=== PATIENT | male | born 1960 | race Caucasian/White ===

== ENCOUNTER 2017-03-07 12:16 | Emergency (ER) | payer BC ==
[~2017-03-07] VITALS: Ht 172.7 cm; Wt 72.1 kg
[~2017-03-07 12:16] MED LIST: ATENOLOL25 MG PO; AUGMENTIN875 MG PO; ENDOCET 5-3251 EACH PO; METHIMAZOLE5 MG PO; NOHOMEMEDS; RABAVERT IM
[2017-03-07] MEDS ORDERED: ZITHROMAX Z-PA250 MG PO (12:51)
[2017-03-07 13:25] VITALS: BP 136/88
== END 2017-03-07 15:17 | disposition home or self-care (01) ==
LOC: EME 12:16
DX: J20.9 Acute bronchitis, unspecified (principal); I10 Essential (primary) hypertension; E03.9 Hypothyroidism, unspecified; J06.9 Acute upper respiratory infection, unspecified
CPT/HCPCS: 99281; 99284

== ENCOUNTER 2017-03-15 11:34 | Emergency (ER) | payer BC ==
[~2017-03-15] VITALS: Ht 172.7 cm; Wt 70.7 kg
[~2017-03-15 11:34] MED LIST changes: +ZITHROMAX Z-PA250 MG PO
[2017-03-15 12:18] LABS: HEMATOCRIT 44.5 % (38.0-50.0); HEMOGLOBIN 16.6 G/DL (12.5-16.6); MCH 31.2 PG (29.0-34.0); MCHC 37.3 G/DL (30.0-36.0); MCV 83.6 FL (86-99); PLATELET COUNT 222 K/uL (156-360); RBC DIS.WIDTH-CV 11.1 % (11.8-14.6); RBC DIS.WIDTH-SD 33.5 % (39-53); RED BLOOD COUNT 5.32 M/uL (4.00-5.50); WHITE BLOOD COUNT 3.8 K/uL (4.1-10.2)
[2017-03-15 12:30] LABS: CHLORIDE 104 mEq/L (99-109); POTASSIUM 4.1 mEq/L (3.7-5.4); SODIUM 136 mEq/L (136-147)
[2017-03-15 12:32] LABS: GLUCOSE 97 mg/dL (70-99)
[2017-03-15 12:36] LABS: CREATININE 0.8 mg/dL (0.6-1.3); GFR ESTIMATE (CALCULATED) > 59 mL/min/ (58.99-99999)
[2017-03-15 12:37] LABS: UREA NITROGEN (BUN) 16 mg/dL (9-23)
[2017-03-15] MEDS ORDERED: PREDNISONE20 MG PO (15:09)
[2017-03-15 16:13] VITALS: BP 120/77
== END 2017-03-15 16:16 | disposition home or self-care (01) ==
LOC: EME 11:34
DX: B34.9 Viral infection, unspecified (principal); R06.02 Shortness of breath; I10 Essential (primary) hypertension; E03.9 Hypothyroidism, unspecified; Z79.82 Long term (current) use of aspirin
CPT/HCPCS: 71046; 80048; 85027; 94640; 99281; 99284